=== PATIENT | female | born 1960 | race Caucasian/White ===

== ENCOUNTER 2021-03-05 14:11 | Emergency (ER) | payer BC ==
[~2021-03-05] VITALS: Ht 160 cm; Wt 72.0 kg
[2021-03-05 14:15] VITALS: BP 142/85
--- NOTE | 2021-03-05 15:01 | PHYS DOC ---
Past History Past Medical History: Other Additional Past Medical Histor: chronic sinus infections, 2 herniated discs in back Past Surgical History: Tonsillectomy Additional Past Surgical Histo: uterine ablasion Alcohol Use: Heavy Additional Alcohol Information: 1glass of wine General Adult EDM: Chief Complaint: FACE PROBLEM HPI: HPI: Patient is a 60-year-old female coming in for left face pressure and swelling. Patient states she fell in her face is full starting over her cheek and had occasional twitches below her left eyelid. Denies any vision changes but states she woke up this morning and her eyes had drainage. Denies any fevers. States she really there is a fullness in her ears with pressure but denies any hearing loss or tinnitus. Has a history of sinus problems and was seeing an ENT doctor prior to Covid. Denies any changes in congestion other than her baseline allergies. States she feels the pain moving into her jaw. No other past medical history does not take any medications. Review of Systems: Review of Systems: All other systems within normal limits except for as noted in the HPI Physical Exam: PE: Constitutional: Well developed, well nourished, no acute distress, non-toxic appearance. [] HENT: Normocephalic, atraumatic, bilateral external ears normal, nose normal. Bilateral ear effusions, no mastoid tenderness, mild puffiness to left face without any masses. [] Eyes: PERRLA, conjunctiva normal, no discharge. [] Neck: No rigidity, supple, no stridor. [] Cardiovascular: Regular rate and rhythm, brisk cap refill [] Lungs & Thorax: Non labored symmetric respirations, no tachypnea or respiratory distress [] Abdomen: Soft, nondistended. Skin: Warm, dry, no erythema, no rash. [] Back: Unremarkable Extremities: No deformities, range of motion grossly intact, no lower extremity edema [] Neurologic: Alert and oriented X 3, no focal deficits noted, cranial nerves intact. [] Psychologic: Affect normal, judgement normal, mood normal. [] Current Patient Data: Vital Signs: Vital Signs Date Time Temp Pulse Resp B/P (MAP) Pulse Ox O2 Delivery O2 Flow Rate FiO2 03/05/21 14:15 98.1 75 18 142/85 (104) 98 Room Air EKG: EKG: Sinus rhythm, heart rate 70 bpm, normal axis, no [place] depression, no ectopy. [] Radiology/Procedures: Radiology/Procedures: []CT HEAD AND MAXILLOFACIAL WO Date: 03/05/2021 2:56 PM Clinical Indication: DIZZINESS. LEFT FACIAL NUMBNESS Comparison: None. Technique: 5 mm axial tomographic images were obtained of the head without contrast. These were viewed on brain and bone windows. Axial helical images of the face were obtained without contrast. Axial and coronal reconstruction was performed. One or more of the following dose reduction techniques were utilized: Automated exposure control (AEC), Adjustment of mA and/or kV according to patient size, Use of iterative reconstruction technique such as ASiR, CT scan done according to ALARA and image gently/image wisely CT HEAD FINDINGS: The brain parenchyma is normal in attenuation. No intra- or extra-axial mass or fluid collection. No acute hemorrhage. The ventricles are normal in size, shape, and morphology. The sams-white matter junction is normal. The basilar cisterns are patent. The mastoid air cells are clear. No aggressive osseous lesion or fracture. CT FACE FINDINGS: There is no acute facial bone fracture. The paranasal sinuses are clear. The orbits are normal. The globes are intact. The nasal septum is slightly deviated to the left. The ostiomeatal complexes are patent. Impression: 1. No acute intracranial process. 2. No acute facial bone fracture. Heart Score: C/O Chest Pain: No Risk Factors: Risk Factors: DM, Current or recent (<one month) smoker, HTN, HLP, family history of CAD, obesity. Risk Scores: Score 0 - 3: 2.5% MACE over next 6 weeks - Discharge Home Score 4 - 6: 20.3% MACE over next 6 weeks - Admit for Clinical Observation Score 7 - 10: 72.7% MACE over next 6 weeks - Early Invasive Strategies Course & Med Decision Making: Course & Med Decision Making Pertinent Labs and Imaging studies reviewed. (See chart for details) Nothing focal on exam. Patient has very vague symptoms and later stated that his symptoms have been going on for a while the only thing that was different was the face "numbness". Patient does not have any sensory deficits does not describe a "numbness" and paresthesias. Check dentition for the possibility of a canine space infection but dentition appears good with no gingival erythema or edema. Discussed return precautions. Patient plans to follow-up with her ENT provider [] Celina Disclaimer: Celina Disclaimer: This electronic medical record was generated, in whole or in part, using a voice recognition dictation system. Departure Departure: Impression: Primary Impression: Face pain Disposition: HOME / SELF CARE / HOMELESS Condition: STABLE Referrals: FREDI SIMON MD (PCP) Additional Instructions: Follow-up with your ENT provider. Return to emergency department if you experience persistent vertigo, lack of sensation, weakness, or facial droop. STEFANY CASON MD March 05, 2021 15:01
--- NOTE | 2021-03-05 15:11 | RAD ---
CT HEAD AND MAXILLOFACIAL WO Date: 03/05/2021 2:56 PM Clinical Indication: DIZZINESS. LEFT FACIAL NUMBNESS Comparison: None. Technique: 5 mm axial tomographic images were obtained of the head without contrast. These were view ed on brain and bone windows. Axial helical images of the face were obtained without contrast. Axial and coronal reconstruction was performed. One or more of the following dose reduction techniques were utilized: Automated exposure control (AEC), Adjustment of mA and/or kV according to patient size, Us e of iterative reconstruction technique such as ASiR, CT scan done according to ALARA and image gentl y/image wisely CT HEAD FINDINGS: The brain parenchyma is normal in attenuation. No intra- or extra-axial mass or fluid collection. No acute hemorrhage. The ventricles are normal in size, shape, and morphology. The sams-white matter gregg ction is normal. The basilar cisterns are patent. The mastoid air cells are clear. No aggressive osseous lesion or fracture. CT FACE FINDINGS: There is no acute facial bone fracture. The paranasal sinuses are clear. The orbits are normal. The globes are intact. The nasal septum is sl ightly deviated to the left. The ostiomeatal complexes are patent. Impression: 1. No acute intracranial process. 2. No acute facial bone fracture. Electronically signed by: Darien Duarte MD (03/05/2021 3:09 PM) [facility]
[2021-03-05 16:24] LABS: BASO # 0.1 x10^3/uL (0.0-0.2); BASO % 1 % (0-3); EOS # 0.1 x10^3/uL (0.0-0.7); EOS % 1 % (0-3); HEMATOCRIT 40.7 % (36.0-47.0); HEMOGLOBIN 13.7 g/dL (12.0-15.5); LYMPH # 2.3 x10^3/uL (1.0-4.8); LYMPH % 32 % (24-48); MEAN CORPUSCULAR HEMOGLOBIN 31 pg (25-35); MEAN CORPUSCULAR HGB CONC 34 g/dL (31-37); MEAN CORPUSCULAR VOLUME 93 fL (79-100); MONO # 0.5 x10^3/uL (0.0-1.1); MONO % 7 % (0-9); NEUT # 4.3 x10^3uL (1.8-7.7); NEUT % 59 % (31-73); PLATELET COUNT 249 x10^3/uL (140-400); RED BLOOD COUNT 4.35 x10^6/uL (3.50-5.40); RED CELL DISTRIBUTION WIDTH 13.5 % (11.5-14.5); WHITE BLOOD COUNT 7.3 x10^3/uL (4.0-11.0)
[2021-03-05 16:32] LABS: CREATININE 0.8 mg/dL (0.6-1.0); GFR 73.7; POTASSIUM 3.8 mmol/L (3.5-5.1)
[2021-03-05 16:38] LABS: ALBUMIN/GLOBULIN RATIO 1.1 (1.0-1.7); TOTAL BILIRUBIN 0.5 mg/dL (0.2-1.0); TOTAL PROTEIN 7.5 g/dL (6.4-8.2)
--- NOTE | 2021-03-05 17:00 | EKG ---
[address] [address] Test Date: 2021-03-05 Test Time: 14:23:35 Pat Name: BRIAN ALICEA Department: Room: Gender: F Service Advisor: DEYSI : [id number] Requested By: STEFANY CASON Order Number: [id number] Reading MD: Measurements Intervals [place] Rate: 76 P: 53 MD: 128 QRS: 26 QRSD: 90 T: 12 QT: 372 QTc: 418 Interpretive Statements SINUS RHYTHM NORMAL ECG RI6.02 No previous ECG available for comparison
== END 2021-03-05 16:50 | disposition home or self-care (01) ==
LOC: ER 14:11
DX: R51.9 Headache, unspecified (principal); R42 Dizziness and giddiness
CPT/HCPCS: 36415; 70450; 70486; 80053; 85025; 93005; 99285-25